=== PATIENT | male | born 1985 | race Caucasian/White ===

== ENCOUNTER 2021-09-29 13:49 | Outpatient (REF) | payer OTHER, SELFPAY ==
[2021-09-29 14:51] LABS: COVID-19 Test Negative (Negative)
== END 2021-09-29 13:50 | disposition home or self-care (01) ==
LOC: HO.LAB 13:49
PROVIDERS: Visit Provider Internal Medicine
DX: Z20.822 Contact with and (suspected) exposure to COVID-19 (principal)
CPT/HCPCS: 87635; C9803

== ENCOUNTER 2024-03-13 12:07 | Emergency (ER) | payer SELFPAY | END 2024-03-13 13:06 | disposition left against medical advice (07) | PROVIDERS: Emergency Provider Emergency Medicine | DX: K62.5 Hemorrhage of anus and rectum (principal); Z53.21 Procedure and treatment not carried out due to patient leaving prior to being seen by health care provider ==

== ENCOUNTER 2024-03-14 06:20 | Emergency (ER) | payer OTHER, SELFPAY ==
--- NOTE | ~2024-03-14 | CT_ITS ---
EXAMINATION: CT ABDOMEN AND PELVIS WITH CONTRAST CLINICAL INFORMATION: Rectal bleeding and now with epigastric pain COMPARISON: None available. TECHNIQUE: Multidetector volumetric images were obtained from the superior aspect of the liver through the pubic symphysis following administration 85 mL of Omnipaque 350 intravenous contrast. Sagittal and coronal reformatted images were obtained on the technologist's workstation. Oral contrast: No This CT examination was performed using dose optimization techniques as appropriate, variously including the following: *Automated exposure control *Adjustment of mA and/or kV according to patient size (this includes techniques or standardized protocols for targeted exams where dose is matched to indication/reason for exam; i.e. extremities or head) *Use of iterative reconstruction technique DLP: 808 mGy-cm FINDINGS: LUNG BASES: The visualized lung bases are unremarkable. LIVER, GALLBLADDER, AND BILIARY TREE: Mild hepatic steatosis. No focal hepatic mass. No intrahepatic biliary dilatation. The gallbladder is unremarkable with no evidence of radiopaque gallstones, gallbladder wall thickening, or obvious pericholecystic inflammatory changes. PANCREAS: Unremarkable. SPLEEN: Spleen grossly normal. Tiny punctate calcification along the margin of the spleen. No fluid collections. ADRENAL GLANDS: Unremarkable. KIDNEYS AND URETERS: The kidneys are normal in size, shape, and attenuation. No hydronephrosis, hydroureter, or calculi seen. No perinephric stranding. BLADDER: Unremarkable. GASTROINTESTINAL TRACT: The right colon is decompressed and shows variable areas of mural thickening. There are jejunal loops which appears somewhat indurated and thickened likely reflective of underlying enteritis and perhaps mild colitis. I do not see evidence of acute diverticulitis, bowel obstruction, or pericolonic fluid collection. The appendix is normal. ABDOMINAL WALL: No significant hernia is appreciated. LYMPH NODES: Small subcentimeter nodes are seen in the periportal and peripancreatic space. VASCULAR: Unremarkable. PELVIC VISCERA: Unremarkable. OSSEOUS STRUCTURES: Degenerative change observed at the lumbosacral junction. CT/CT abdomen pelvis w IV con IMPRESSION: Apparent enteritis. Possible mild colitis at the region of the hepatic flexure. Fleischner guidelines were followed.
[2024-03-14 06:26] VITALS: BP 145/81; PULSE 112; RESP 20; TEMP 36.8; O2SAT 95; BMI 34.2
--- NOTE | 2024-03-14 06:43 | MHC.EDTECH ---
Patient brought into triage area,labs drawn and sent to lab.
[2024-03-14 06:45] LABS: MANUAL DIFF FLAG NO
[2024-03-14 06:46] LABS: Basophils Percent Auto 0.5 % (0-2); Eosinophils Percent Auto 0.4 % (0-4); Hematocrit 46.1 % (42.0-52.0); Hemoglobin 16.5 g/dl (14.0-18.0); Imm Gran Abs Auto 0.01 X10*3/uL (0.00-0.03); Imm Gran Pct Auto 0.1 % (0.0-0.4); Lymphocytes Absolute Auto 1.3 X10*3/uL (1.2-4.9); Lymphocytes Percent Auto 17.8 % (20-40); Mean Corpuscular HGB Conc 35.8 g/dl (31.0-36.0); Mean Corpuscular Hemoglobin 33.3 pg (27.0-33.0); Mean Corpuscular Volume 93.1 fL (80.0-98.0); Mean Platelet Volume 9.7 fL (9.4-12.4); Monocytes Absolute Auto 0.8 X10*3/uL (0.1-1.2); Monocytes Percent Auto 10.1 % (2-11); Neutrophils Absolute Auto 5.4 x10*3/uL (2.0-8.3); Neutrophils Percent Auto 71.1 % (45-73); Platelet Count 194 X10*3/uL (160-400); Red Blood Count 4.95 X10*6/uL (4.60-5.80); Red Cell Distribution Width 12.8 % (11.0-16.0); White Blood Count 7.5 X10*3/uL (4.8-10.8)
--- NOTE | 2024-03-14 06:52 | ED_ITS ---
HPI - General Adult General Chief complaint: General Medical Stated complaint: gen med Time Seen by Provider: 03/14/24 06:51 Source: patient, RN notes reviewed and old records reviewed Mode of arrival: ambulatory History of Present Illness ED Provider: Griselda Rojo PA-C [facility] narrative: 38-year-old male with a past medical history of heroin abuse currently on methadone, ETOH abuse, presenting to the ED complaining of brbpr when wiping noted this morning. Admits to similar symptoms intermittently over the past year however has never seen a provider. Does report hemorrhoids. Also reports daily EtOH use, about 5 nips daily, last drink last night, feels withdrawal symptoms at present. Denies history of withdrawal seizures. Denies abdominal pain, nausea/vomiting, constipation/diarrhea, straining, taking anticoagulation, dysuria/hematuria Related Data Previous Rx's ?Medication ?Instructions ?Recorded hydrocortisone 1 % topical cream 1 appl IA DAILY #28.4 grams 03/14/24 with perineal applicator Allergies Allergy/AdvReac Type Severity Reaction Status Date / Time No Known Allergies Allergy Verified 03/14/24 06:32 Review of Systems 2 Review of Systems: Constitutional: No Fever, No Chills ENT/Mouth: No Ear Pain, No Nasal Congestion, No sore throat, No Rhinorrhea, No Swallowing Difficulty Cardiovascular: No Chest Pain, No SOB Respiratory: No Cough, No Sputum, No Wheezing Gastrointestinal: No Nausea, No Vomiting, No Diarrhea, No Constipation, No Abdominal pain, +brbpr Genitourinary: No Dysuria, No Urinary Frequency, No Hematuria, No Urinary Incontinence/retention, No Flank Pain Musculoskeletal: No joint pain, No Myalgias Skin: No Skin Lesions, No rash Neuro: No Weakness Yes all other systems are reviewed and are negative Constitutional: Constitutional: Reports as per [facility] Past Medical History Attestation statement: The following information was validated with the patient. Source: old records reviewed Social History Social History Alcohol intake: current Use of substances other than those prescribed or required for medical reasons: No Advance Directives: Yes Advance Directives Information Provided: Yes Advance Directives on File: No Physical Exam ED Vital Signs: Vital Signs - 24 hr 03/14/24 06:26 03/14/24 07:32 03/14/24 08:45 Temperature 98.3 F 98.6 F Pulse Rate 112 H 96 Pulse Rate [Bilateral Apical] 100 Respiratory Rate 20 20 Blood Pressure 145/81 H 149/79 H Pulse Oximetry 95 98 Oxygen Delivery Method Room Air Room Air 03/14/24 11:00 Temperature 98.4 F Pulse Rate 92 Pulse Rate [Bilateral Apical] Respiratory Rate 18 Blood Pressure 143/93 H Pulse Oximetry 96 Oxygen Delivery Method Room Air BMI result Body Mass Index 34.2 Const General: cooperative and no acute distress Orientation/consciousness: patient oriented x3 Limitations: no limitations HENMT Head: Yes normal to inspection and Yes atraumatic Ears: hearing grossly normal bilaterally General nose exam: Normal external nose present Face and sinus: Yes normal facial exam Eyes General: appearance normal, both eyes and all related structures EOM: EOMs intact bilaterally Neck Neck: Yes normal visual inspection and Yes no meningeal signs Resp Effort & Inspection: normal respiratory effort and no respiratory distress Auscultation: clear to auscultation bilaterally Cardio Rate: regular rate Heart sounds: S1 normal heart sound present and S2 normal heart sound present GI Inspection: Yes normal to inspection Palpation (GI): Soft to palpation, nontender, no guarding and not rigid Rectal Exam - Male: Yes External hemorrhoid(s) present, Yes Internal hemorrhoid(s) present (Prolapsed with swelling, no thrombosis or active bleeding) and No Anal fissure(s) present General: Yes no CVA tenderness Back/Spine/Pelvis Back: no CVA tenderness Skin Other: + diffuse bruises over entire body Rashes: no rashes Neuro Other: + mildly tremulous. No tongue fasciculation General: patient oriented x3, tone normal, moves all extremities and no meningeal signs Cranial nerves: Yes CN's II-XII intact bilaterally Motor exam (neuro): Motor fasciculations not present and Tremors during motor activity present Extrem General: Yes normal to inspection Course Course Course Narrative: -no leukocytosis. Labs otherwise reassuring. Mild elevation in AST/ALT. Lipase WNL. -occult stool negative -tox screen positive for methadone, cocaine and THC CT abdomen pelvis w IV con IMPRESSION: Apparent enteritis. Possible mild colitis at the region of the hepatic flexure. Fleischner guidelines were followed. > addiction medicine spoke with patient, he has not interested in inpatient detox. Was supplied with resources. Results discussed with patient. Suspect hemorrhoidal bleeding, recommended close GI/colorectal follow-up Results discussed with patient including worrisome signs and symptoms and strict return precautions, and when to return to the emergency department. They verbalized understanding and feel safe for discharge at this time. Medications Administered Discontinued Medications Generic Name Dose Route Start Last Admin Trade Name Gregorio PRN Reason Stop Dose Admin Sodium Chloride 1,000 mls @ 999 mls/hr 03/14/24 07:15 03/14/24 08:32 Ns IV 03/14/24 08:15 Infused .Q1H1M CLAUDIO Infusion Iohexol 100 ml 03/14/24 08:11 03/14/24 08:11 Iohexol 350 Mg/Ml 100 Ml Infus..Btl IV 03/14/24 08:12 85 ml ONCE ONE Administration Lorazepam 1 mg 03/14/24 07:03 03/14/24 07:07 Lorazepam 2 Mg/Ml Vial IVPUSH 03/14/24 07:04 1 mg STAT STA Administration Lorazepam 2 mg 03/14/24 08:43 03/14/24 08:46 Lorazepam 2 Mg/Ml Vial IVPUSH 03/14/24 08:44 2 mg ONCE ONE Administration Medical Decision Making Medical Decision Making MDM Narrative: 38-year-old male with a past medical history of heroin abuse currently on methadone, ETOH abuse, presenting to the ED complaining of brbpr when wiping noted this morning. Also reports daily EtOH use, about 5 nips daily, last drink last night, feels withdrawal symptoms at present. On exam mildly tremulous, tachycardic, NAD, abdomen soft, nontender, on rectal exam multiple hemorrhoids appreciated with prolapsed internal hemorrhoid, no thrombosis or active bleeding. Concern for hemorrhoidal bleeding, pancreatitis and ETOH withdrawal. R/o GI bleed. No evidence of fissure. Lower suspicion for appendicitis/diverticulitis, cholecystitis/lithiasis. Rule out metabolic/infectious etiologies. Low suspicion for severe sepsis at this time. Diffuse bruising discussed with patient, states he was roughhousing around with a friend. Will not let me fully examine ecchymosis/injuries Plan: EKG, labs, UA, tox screen, IVF, Ativan p.r.n. for ETOH withdrawal, occult stool, CT AP Please refer to course for remaining clinical decision making, interpretation of labs/imaging results, and discussions with consultants and/or family members. Differential Diagnosis Differential Diagnoses: The differential diagnosis associated with the presentation includes As above Admission/Observation Consideration of admission/observation: Escalation of care including admission/observation considered Consult Healthcare Provider Management of the patient was discussed with: Behavioral Health Provider Lab Data [facility] Lab Attestation statement: I reviewed the patient's lab results. 03/14/24 06:39 03/14/24 06:39 Labs: Lab Results 03/14/24 03/14/24 03/14/24 Range/Units 06:39 07:07 08:51 WBC 7.5 (4.8-10.8) X10*3/uL RBC 4.95 (4.60-5.80) X10*6/uL Hgb 16.5 (14.0-18.0) g/dl Hct 46.1 (42.0-52.0) % MCV 93.1 (80.0-98.0) fL MCH 33.3 H (27.0-33.0) pg MCHC 35.8 (31.0-36.0) g/dl RDW 12.8 (11.0-16.0) % Plt Count 194 (160-400) X10*3/uL MPV 9.7 (9.4-12.4) fL Immature Gran % (Auto) 0.1 (0.0-0.4) % Neut % (Auto) 71.1 (45-73) % Lymph % (Auto) 17.8 L (20-40) % [place] % (Auto) 10.1 (2-11) % Eos % (Auto) 0.4 (0-4) % Baso % (Auto) 0.5 (0-2) % Lymph # (Auto) 1.3 (1.2-4.9) X10*3/uL [place] # (Auto) 0.8 (0.1-1.2) X10*3/uL Eos # (Auto) 0.0 (0.0-0.4) X10*3/uL Baso # (Auto) 0.0 (0.0-0.2) X10*3/uL Abs Immat Gran (auto) 0.01 (0.00-0.03) X10*3/uL Absolute Neuts (auto) 5.4 (2.0-8.3) x10*3/uL Absolute Nucleated RBC 0.000 (0.0-0.012) X10*3/uL Nucleated RBC % (auto) 0.0 (0.0-0.2) /100WBC Sodium 140 (135-145) mmol/L Potassium 3.7 (3.3-5.1) mmol/L Chloride 104 (96-108) mmol/L Carbon Dioxide 25 (22-29) mmol/L Anion Gap 15 (12-20) BUN 6 L (9-16) mg/dL Creatinine 0.77 (0.5-1.4) mg/dL Estim Creat Clear Calc 163.3 Estimated GFR > 60 Random Glucose 124 H (60-115) mg/dL Calcium 9.8 (8.4-10.2) mg/dL Magnesium 1.6 (1.6-2.6) mg/dL Total Bilirubin 0.9 (0.0-1.0) mg/dL AST 51 H (5-37) U/L ALT 48 H (0-40) U/L Alkaline Phosphatase 116 (39-117) U/L Total Protein 7.6 (6.5-8.0) g/dL Albumin 4.6 (3.5-5.0) g/dL Lipase 20 (8-78) U/L Stool Occult Blood NEGATIVE (NEGATIVE) Urine Opiates Screen Not Detected (Not Detect) Ur Buprenorphine Scrn Not Detected (Not Detect) ng/mL Ur Oxycodone Screen Not Detected (Not Detect) ng/mL Urine Methadone Screen Positive H (Not Detect) ng/mL Urine Fentanyl Screen Not Detected (Not Detect) Ur Barbiturates Screen Not Detected (Not Detect) Ur Phencyclidine Scrn Not Detected (Not Detect) Ur Amphetamines Screen Not Detected (Not Detect) U Benzodiazepines Scrn Not Detected (Not Detect) Urine Cocaine Screen POSITIVE H (Not Detect) U Marijuana (THC) Screen POSITIVE H (Not Detect) Ethyl Alcohol < 10 mg/dL Independent Interpretation I performed an independent interpretation of an: EKG Radiology Impression Discussion of test interpretation with radiology: I have reviewed the radiologist's reading. External Record Review External record reviewed: Inpatient record, Office record, Outpatient record, Prior outpatient labs, Prior outpatient radiology, Primary care record and Outside ED record Tests considered The following testing was considered but not selected: As above Social Determinants Patient?s care significantly limited by Social Determinants of Health including: Low income and Alcoholism and drug addiction in family Discharge Plan Discharge Clinical Impression: Bleeding hemorrhoids, Enteritis, Alcohol abuse Patient Disposition: Home, Self-Care Instructions: Hemorrhoids (DC), Abuse of Alcohol (DC), Enteritis (ED) Additional Instructions: Your blood work is reassuring. We suspect her bleeding is from your hemorrhoids, you need to see a colorectal specialist Please practice Sitz baths and use topical hydrocortisone cream Your CT scan shows enteritis, practice a bland diet, make sure staying hydrated, no antibiotics are needed at this time If you develop constant worsening bleeding, abdominal pain, nausea/vomiting, you are unable to eat or drink or fever return to the emergency department You were given resources for detox, please consider detox, avoid alcohol use. Alcohol withdrawal can kill you Prescriptions: New hydrocortisone 1 % cream with perineal applicator 1 appl IA DAILY Qty: 28.4 0RF Referrals: [facility] [place] G[facility]enterology Services [Provider Group] [facility] [place] General Surgeons [Provider Group] Mirian Morillo CNP [Nurse Practitioner] - Interventions: ED Discharge Assessment Last Done: 03/14/24 11:00 Discharge Date/Time: 03/14/24 11:04 Print Language: Finnish
[2024-03-14 07:05] LABS: Alanine Aminotransferase 48 U/L (0-40); Albumin Level 4.6 g/dL (3.5-5.0); Alkaline Phosphatase 116 U/L (39-117); Anion Gap 15 (12-20); Aspartate Amino Transferase 51 U/L (5-37); Bilirubin Total 0.9 mg/dL (0.0-1.0); Blood Urea Nitrogen 6 mg/dL (9-16); Calcium 9.8 mg/dL (8.4-10.2); Carbon Dioxide 25 mmol/L (22-29); Chloride 104 mmol/L (96-108); Creatinine Clr Calc Pharmacy 163.3; Estimated Glomerular Filt Rate > 60; Ethanol < 10 mg/dL; Glucose Random 124 mg/dL (60-115); Magnesium 1.6 mg/dL (1.6-2.6); Potassium 3.7 mmol/L (3.3-5.1); Sodium 140 mmol/L (135-145); Total Protein 7.6 g/dL (6.5-8.0)
[2024-03-14] MEDS: LORazepam 2 MG/ML VIAL 1 MG IVPUSH (07:07)
[2024-03-14] MEDS: 0.9 % Sodium Chloride 1,000 ML 999 ML IV (07:07)
[2024-03-14 07:13] LABS: OBS Int Ctl Valid YES; OBS1 NEGATIVE (NEGATIVE)
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
[2024-03-14 07:32] VITALS: PULSE 100
--- NOTE | 2024-03-14 07:49 | ECG_ITS ---
Test Reason : TACHYCARDIA Blood Pressure : / mmHG Vent. Rate : 087 BPM Atrial Rate : 087 BPM P-R Int : 124 ms QRS Dur : 092 ms QT Int : 384 ms P-R-T Axes : 054 062 -16 degrees QTc Int : 462 ms Normal sinus rhythm with sinus arrhythmia Normal EKG No previous ECGs available Referred By: Griselda Rojo Electronically Signed By:ROLA RODRIGUEZ
[2024-03-14] MEDS: iohexoL 350 MG/ML 100 ML INFUS..BTL IV (08:11)
[2024-03-14 08:15] LABS: Lipase 20 U/L (8-78)
[2024-03-14 08:45] VITALS: BP 149/79; PULSE 96; RESP 20; TEMP 37; O2SAT 98
[2024-03-14] MEDS: LORazepam 2 MG/ML VIAL IVPUSH (08:46)
[2024-03-14 09:09] LABS: Amphetamine Screen Urine Not Detected (Not Detect); Barbiturates, Urine Not Detected (Not Detect); Benzodiazepines Screen Urine Not Detected (Not Detect); Buprenorphine Scr Not Detected (Not Detect); Cannabinoid Screen Urine POSITIVE (Not Detect); Cocaine Screen Urine POSITIVE (Not Detect); Fentanyl, urine Not Detected (Not Detect); Methadone Screen, Urine Positive (Not Detect); Opiate Screen Urine Not Detected (Not Detect); Oxycodone Screen Urine Not Detected (Not Detect); Phencyclidine Screen Urine Not Detected (Not Detect)
[2024-03-14 11:00] VITALS: BP 143/93; PULSE 92; RESP 18; TEMP 36.9; O2SAT 96
--- NOTE | 2024-03-14 11:31 | MHC.RECOVRN ---
Met with pt in ED13 after pt expressed interest in ATS and was medically cleared. Pt had presented to the ED reporting red blood after having BM. Pt reported hx of same but has never seen a provider. Pt denied ABD pain, N/V. Pt reported alcohol use. Pt sitting laying in bed, asleep, wakes to touch, mom at bedside and present for conversation with patient's permission. Pt appears comfortable, does not appear to be experiencing withdrawal. Pt reports alcohol use, approx 5 vodka shots daily x 1 year. Mom reports increase in alcohol use since dad in February. Pt reports he has never had a problem with alcohol in the past. Pt reports hx OUD, currently on methadone through [facility], 11 mg daily. Pt reports he is tapering off, had been at 80 mg. Has been going to [facility] x 5 years. Pt reports last opioid use approx 2.5 years ago. Pt denies hx ATS admissions. Pt reports he is interested in ATS, however, is not interested in inpatient tx. Educated pt regarding ATS and there is not a facility that offers outpatient detox. Educated pt on dangers of ceasing alcohol use abruptly, including risk of seizure. Pt verbalizes understanding. Educated pt on outpatient treatment options, including IOP, recovery collector, [facility], as well as AA and other groups. Provided pt with written resources as well as t/w contact information if needed. Pt would like to look over resources, does not want referrals at this time. Pt denies questions or concerns for t/w. Discussed with ED provider.
== END 2024-03-14 11:04 | disposition home or self-care (01) ==
PROVIDERS: Physician Assistant; Emergency Provider Emergency Medicine
DX: K64.9 Unspecified hemorrhoids (principal); F10.10 Alcohol abuse, uncomplicated; R00.0 Tachycardia, unspecified; R10.13 Epigastric pain; F11.20 Opioid dependence, uncomplicated; Z79.899 Other long term (current) drug therapy
CPT/HCPCS: 36415; 74177; 80053; 80307; 82272; 83690; 83735; 85025; 93005; 96361; 96374; 96376; 99285; J2060; Q9967

== ENCOUNTER → 2024-03-14 07:49 | Outpatient (BNV) | payer OTHER, SELFPAY | PROVIDERS: Emergency Provider Emergency Medicine; Visit Provider Internal Medicine | DX: R00.0 Tachycardia, unspecified (principal) | CPT/HCPCS: 93010 ==

== ENCOUNTER 2024-04-28 09:25 | Emergency (ER) | payer OTHER, SELFPAY ==
--- NOTE | ~2024-04-28 | XR_ITS ---
EXAMINATION: XR RIGHT WRIST XR LEFT FOOT CLINICAL INFORMATION: Right wrist pain. Left foot pain. COMPARISON: None available. TECHNIQUE: AP, lateral and oblique views of the left foot. PA, lateral, oblique and navicular views of the right wrist. FINDINGS: Right wrist: Alignment is anatomic. Joint spaces are maintained. No displaced fracture or dislocation. No bony erosions. No focal radiographic soft tissue swelling. Left foot: Alignment is anatomic. Joint spaces are maintained. No displaced fracture or dislocation. No focal radiographic soft tissue swelling. XR/XR foot LT min 3V IMPRESSION: No acute abnormality.
--- NOTE | ~2024-04-28 | XR_ITS ---
EXAMINATION: XR RIGHT WRIST XR LEFT FOOT CLINICAL INFORMATION: Right wrist pain. Left foot pain. COMPARISON: None available. TECHNIQUE: AP, lateral and oblique views of the left foot. PA, lateral, oblique and navicular views of the right wrist. FINDINGS: Right wrist: Alignment is anatomic. Joint spaces are maintained. No displaced fracture or dislocation. No bony erosions. No focal radiographic soft tissue swelling. Left foot: Alignment is anatomic. Joint spaces are maintained. No displaced fracture or dislocation. No focal radiographic soft tissue swelling. XR/XR wrist RT min 3V IMPRESSION: No acute abnormality.
[2024-04-28 09:27] VITALS: BP 111/85; PULSE 104; RESP 18; TEMP 37.5; O2SAT 96; BMI 34.4
--- NOTE | 2024-04-28 09:36 | ED_ITS ---
HPI - Extremity Problem General Chief complaint: Extremity Injury, Upper Stated complaint: swollen wrist Time Seen by Provider: 04/28/24 09:35 Source: patient and RN notes reviewed Mode of arrival: ambulatory Limitations: no limitations History of Present Illness ED Provider: Sherry Ribera PA-C [facility] Narrative: This is a 38-year-old male, with a history of opioid use disorder on methadone, who presents emergency department with complaints of right wrist pain and swelling and left foot pain for the last 2 weeks. He denies any recent trauma or injury. Did have a skin graft in his right wrist in 2001. He denies any repetitious movements however states that he does frequently lift at work. Denies history of similar symptoms in the past. No history of gout. He has been taking Excedrin for his pain which has provided him with minimal relief. No fevers or chills. No chest pain or shortness for breath. No other complaints or concerns at this time. MD Complaint: extremity pain, extremity swelling, joint swelling and joint pain Onset (ago): week(s) Pain Consistency: constant Location: right and upper extremity Quality: aching Radiation: none Relieving factors: nothing Exacerbating factors: nothing Associated symptoms: denies other symptoms Related Data Previous Rx's ?Medication ?Instructions ?Recorded hydrocortisone 1 % topical cream 1 appl [place] DAILY #28.4 grams 03/14/24 with perineal applicator acetaminophen 325 mg tablet 650 mg (2 x 325 mg) PO Q6H PRN 04/28/24 (Tylenol) pain #30 tabs ibuprofen 600 mg tablet 600 mg PO Q6H PRN pain #30 tabs 04/28/24 prednisone 20 mg tablet 40 mg (2 x 20 mg) PO DAILY 4 days 04/28/24 #8 tabs Allergies Allergy/AdvReac Type Severity Reaction Status Date / Time No Known Allergies Allergy Verified 04/28/24 09:29 Review of Systems 2 Review of Systems: Yes all other systems are reviewed and are negative Constitutional: Constitutional: Reports as per [facility] Past Medical History Attestation statement: The following information was validated with the patient. Social History Social History Alcohol intake: current Advance Directives: No Advance Directives Information Provided: No Physical Exam 2 Vital Signs: Vital Signs: Last Vital Signs Temp 97.7 F 04/28/24 12:51 Pulse 72 04/28/24 12:51 Resp 16 04/28/24 12:51 BP 135/91 H 04/28/24 12:51 Pulse Ox 97 04/28/24 12:51 O2 Del Method Room Air 04/28/24 12:51 BMI result Body Mass Index 34.4 Const: General: cooperative, comfortable and no acute distress O rientation/consciousness: patient oriented x3 Limitations: no limitations HEENT: Head: Yes normal to inspection, Yes normocephalic and Yes atraumatic Ears: hearing grossly normal bilaterally General nose exam: Normal external nose present Face and sinus: Yes normal facial exam Mouth: Normal oral and palatal mucosa present, oropharynx normal and moist mucous membranes Throat: Yes posterior oropharynx normal Eyes: General: appearance normal, both eyes and all related structures E yelids: Yes eyelids normal Conjunctivae: conjunctivae normal Sclerae: s clerae normal Pupils: Equal, round and reactive pupils present EOM: EOMs intact bilaterally Neck: Neck: Yes normal visual inspection, Yes full ROM and Yes no lymphadenopathy Lymphatic: no lymphadenopathy noted Chest: Chest palpation & inspection: normal inspection of the chest Resp: Effort & Inspection: normal respiratory effort and able to speak in complete sentences Auscultation: clear to auscultation bilaterally, no crackles, no rales, no rhonchi and no wheezes Cardio: Rate: regular rate Rhythm: regular rhythm Heart sounds: S1 normal heart sound present and S2 normal heart sound present GI: Inspection: Yes normal to inspection Skin: General skin exam: no rashes or lesions noted Trauma: no lacerations or abrasions Wounds: no wounds Neuro: General: patient oriented x3 and moves all extremities Cranial nerves: Yes Equal, round and reactive pupils present Extrem: Other: Left foot, with no obvious bony deformity or swelling no erythema or warmth. Full range of motion of the ankle joint. No medial or lateral malleoli tenderness. DP pulse 2 +. Mild tenderness palpation along the dorsum of the tarsals. Right wrist, with old skin grafting noted, no gross bony deformity or swelling. Joint is warm. No profound erythema. Limited mobility of the wrist joint, able to flex and extend, trouble with ulnar and radial deviation. Strong radial pulse. General: Yes normal to inspection Right upper extremity: normal to inspection Left upper extremity: normal to inspection Right lower extremity: normal to inspection Left lower extremity: normal to inspection Course Reevaluation(s) Reevaluation #1: Uric acid returns, is elevated at 7.6, inflammatory markers also elevated. Symptoms consistent with gout flare-up. Will treat with prednisone, and anti- inflammatories. Discussed strict return precautions. He understands agrees with plan. Patient stable for discharge. Medications Administered Discontinued Medications Generic Name Dose Route Start Last Admin Trade Name Gregorio PRN Reason Stop Dose Admin Ibuprofen 600 mg 04/28/24 09:51 04/28/24 09:59 Ibuprofen 600 Mg Tablet PO 04/28/24 09:52 600 mg ONCE ONE Administration Prednisone 50 mg 04/28/24 12:16 04/28/24 12:28 Prednisone 10 Mg Tablet PO 04/28/24 12:17 50 mg ONCE ONE Administration Medical Decision Making Medical Decision Making [facility] Narrative: This is a 38-year-old male who presents emergency department with complaints of right wrist pain and left foot pain x2 weeks. On arrival, heart rate 104, he is afebrile, alert and oriented x4. Right wrist with moderate edema, with limited range of motion of the wrist. Differential diagnoses include gouty arthritis, sprain, strain, tendinitis, septic arthritis-unlikely. Plan: Labs, x-ray, ibuprofen 600 mg Differential Diagnosis Differential Diagnoses: The differential diagnosis associated with the presentation includes See above Admission/Observation Consideration of admission/observation: Escalation of care including admission/observation considered Lab Data [facility] Lab Attestation statement: I reviewed the patient's lab results. 04/28/24 10:05 04/28/24 10:05 Labs: Lab Results 04/28/24 Range/Units 10:05 WBC 11.0 H (4.8-10.8) X10*3/uL RBC 4.74 (4.60-5.80) X10*6/uL Hgb 15.5 (14.0-18.0) g/dl Hct 45.7 (42.0-52.0) % MCV 96.4 (80.0-98.0) fL MCH 32.7 (27.0-33.0) pg MCHC 33.9 (31.0-36.0) g/dl RDW 12.7 (11.0-16.0) % Plt Count 265 D (160-400) X10*3/uL MPV 9.8 (9.4-12.4) fL Immature Gran % (Auto) 0.5 H (0.0-0.4) % Neut % (Auto) 73.8 H (45-73) % Lymph % (Auto) 15.4 L (20-40) % Lane % (Auto) 7.5 (2-11) % Eos % (Auto) 2.3 (0-4) % Baso % (Auto) 0.5 (0-2) % Lymph # (Auto) 1.7 (1.2-4.9) X10*3/uL Lane # (Auto) 0.8 (0.1-1.2) X10*3/uL Eos # (Auto) 0.3 (0.0-0.4) X10*3/uL Baso # (Auto) 0.1 (0.0-0.2) X10*3/uL Abs Immat Gran (auto) 0.05 H (0.00-0.03) X10*3/uL Absolute Neuts (auto) 8.1 (2.0-8.3) x10*3/uL Absolute Nucleated RBC 0.000 (0.0-0.012) X10*3/uL Nucleated RBC % (auto) 0.0 (0.0-0.2) /100WBC ESR 6 (0-15) MM/HR Sodium 139 (135-145) mmol/L Potassium 4.1 (3.3-5.1) mmol/L Chloride 108 (96-108) mmol/L Carbon Dioxide 21 L (22-29) mmol/L Anion Gap 14 (12-20) BUN 12 (9-16) mg/dL Creatinine 0.73 (0.5-1.4) mg/dL Estim Creat Clear Calc 172.8 Estimated GFR > 60 Random Glucose 103 (60-115) mg/dL Uric Acid 7.6 H (3.4-7.0) mg/dL Calcium 9.1 D (8.4-10.2) mg/dL Total Bilirubin 0.3 (0.0-1.0) mg/dL Direct Bilirubin 0.1 (0.0-0.5) mg/dL AST 33 (5-37) U/L ALT 43 H (0-40) U/L Alkaline Phosphatase 117 (39-117) U/L C-Reactive Protein 1.24 H (< or = 0.50) mg/dL Total Protein 7.1 (6.5-8.0) g/dL Albumin 4.2 (3.5-5.0) g/dL Radiology Impression Discussion of test interpretation with radiology: I have reviewed the radiologist's reading. External Record Review External record reviewed: Inpatient record, Office record, Outpatient record, Prior outpatient labs, Prior outpatient radiology, Primary care record and Outside ED record Discharge Plan Discharge Clinical Impression: Gout Patient Disposition: Home, Self-Care Instructions: Low Purine Diet (ED), Gout (ED) Additional Instructions: You were seen in the emergency department due to hand and wrist pain and left foot pain. Your x-rays were normal. You have a condition called gout, see attached details in regards to this condition. You may alter your dietary habits to prevent this from happening in the future. Drink plenty of fluids get plenty of rest. Take ibuprofen and Tylenol as needed for pain. Take prednisone, start this tomorrow as you already received your 1st dose today. If any new or worsening symptoms occur including but not limited to fevers, chills, worsening pain, please return for re-evaluation. Prescriptions: New prednisone 20 mg tablet 40 mg PO DAILY 4 Days Qty: 8 0RF ibuprofen 600 mg tablet 600 mg PO Q6H PRN (Reason: pain) Qty: 30 0RF acetaminophen [Tylenol] 325 mg tablet 650 mg PO Q6H PRN (Reason: pain) Qty: 30 0RF No Action hydrocortisone 1 % cream with perineal applicator 1 appl WA DAILY Qty: 28.4 0RF Referrals: [facility] [Physician] - Stand Alone Forms: Work/School Release Interventions: ED Discharge Assessment Last Done: 04/28/24 12:51 Discharge Date/Time: 04/28/24 12:52 Print Language: Urdu
[2024-04-28] MEDS: Ibuprofen 600 MG TABLET PO (09:59)
[2024-04-28 10:10] LABS: MANUAL DIFF FLAG NO
[2024-04-28 10:14] LABS: Basophils Absolute Auto 0.1 X10*3/uL (0.0-0.2); Basophils Percent Auto 0.5 % (0-2); Eosinophils Absolute Auto 0.3 X10*3/uL (0.0-0.4); Eosinophils Percent Auto 2.3 % (0-4); Hematocrit 45.7 % (42.0-52.0); Hemoglobin 15.5 g/dl (14.0-18.0); Imm Gran Abs Auto 0.05 X10*3/uL (0.00-0.03); Imm Gran Pct Auto 0.5 % (0.0-0.4); Lymphocytes Absolute Auto 1.7 X10*3/uL (1.2-4.9); Lymphocytes Percent Auto 15.4 % (20-40); Mean Corpuscular HGB Conc 33.9 g/dl (31.0-36.0); Mean Corpuscular Hemoglobin 32.7 pg (27.0-33.0); Mean Corpuscular Volume 96.4 fL (80.0-98.0); Mean Platelet Volume 9.8 fL (9.4-12.4); Monocytes Absolute Auto 0.8 X10*3/uL (0.1-1.2); Monocytes Percent Auto 7.5 % (2-11); Neutrophils Absolute Auto 8.1 x10*3/uL (2.0-8.3); Neutrophils Percent Auto 73.8 % (45-73); Platelet Count 265 X10*3/uL (160-400); Red Blood Count 4.74 X10*6/uL (4.60-5.80); Red Cell Distribution Width 12.7 % (11.0-16.0)
[2024-04-28 10:30] LABS: Uric Acid 7.6 mg/dL (3.4-7.0)
[2024-04-28 10:31] LABS: Alanine Aminotransferase 43 U/L (0-40); Albumin Level 4.2 g/dL (3.5-5.0); Alkaline Phosphatase 117 U/L (39-117); Anion Gap 14 (12-20); Aspartate Amino Transferase 33 U/L (5-37); Bilirubin Direct 0.1 mg/dL (0.0-0.5); Bilirubin Total 0.3 mg/dL (0.0-1.0); Blood Urea Nitrogen 12 mg/dL (9-16); C Reactive Protein 1.24 mg/dL (< or = 0.50); Calcium 9.1 mg/dL (8.4-10.2); Carbon Dioxide 21 mmol/L (22-29); Chloride 108 mmol/L (96-108); Creatinine Clr Calc Pharmacy 172.8; Estimated Glomerular Filt Rate > 60; Glucose Random 103 mg/dL (60-115); Potassium 4.1 mmol/L (3.3-5.1); Sodium 139 mmol/L (135-145); Total Protein 7.1 g/dL (6.5-8.0)
[2024-04-28 10:55] LABS: Erythrocyte Sedimentation Rate 6 MM/HR (0-15)
[2024-04-28] MEDS: predniSONE 10 MG TABLET 50 MG PO (12:28)
[2024-04-28 12:50] VITALS: BP 135/91; PULSE 72; RESP 16; TEMP 36.5; O2SAT 97
[2024-04-28 12:51] VITALS: BP 135/91; PULSE 72; RESP 16; TEMP 36.5; O2SAT 97
== END 2024-04-28 12:52 | disposition home or self-care (01) ==
PROVIDERS: Physician Assistant Medical; Emergency Provider Emergency Medicine
DX: M10.9 Gout, unspecified (principal); M25.531 Pain in right wrist; M79.672 Pain in left foot
CPT/HCPCS: 36415; 73110; 73630; 80048; 80076; 84550; 85025; 85652; 86140; 99283; 99284

== ENCOUNTER → 2024-07-12 13:38 | Outpatient (BNVA) | payer OTHER, SELFPAY | PROVIDERS: Visit Provider Physician Assistant Medical | DX: S91.331A Puncture wound without foreign body, right foot, initial encounter (principal); W22.09XA Striking against other stationary object, initial encounter | CPT/HCPCS: 99202 ==

== ENCOUNTER → 2024-07-14 15:39 | Outpatient (BNVA) | payer OTHER, SELFPAY | PROVIDERS: Visit Provider Physician Assistant Medical | DX: S91.331A Puncture wound without foreign body, right foot, initial encounter (principal); W22.09XA Striking against other stationary object, initial encounter | CPT/HCPCS: 99213 ==

== ENCOUNTER 2024-09-26 19:08 | Emergency (ER) | payer MEDICAID, SELFPAY ==
--- NOTE | ~2024-09-26 | XR_ITS ---
CLINICAL HISTORY: Coughing. pneumonia? Chest Radiograph Comparison: CT - CT ABDOMEN PELVIS W IV CON - 03/14/24 07:54 EDT Findings: No cardiomegaly. Normal mediastinal contours. No pneumothorax. Linear opacity in the left lower lung zone. No pleural effusion. Normal upper abdomen. No acute fracture. Impression: Linear opacity in the left lower lung zone could be atelectasis or scarring. Developing pneumonia is considered less likely. This document has been electronically signed by: Stacy Hdz MD on 09/26/2024 19:40:55
[2024-09-26 19:13] VITALS: BP 136/88; PULSE 103; RESP 18; TEMP 37.1; O2SAT 95; BMI 34.4
--- NOTE | 2024-09-26 19:17 | ED_ITS ---
HPI - General Adult General Chief complaint: Upper Respiratory Symptoms Stated complaint: sore throat/chest congestion Time Seen by Provider: 09/26/24 22:38 Source: patient Mode of arrival: ambulatory Limitations: no limitations History of Present Illness ED Provider: Zoraida Villalba NP HPI narrative: Patient is a 38-year-old male who presents emergency department for evaluation he reports having upper respiratory symptoms over the past 3 weeks, symptoms since yesterday became increasingly worse with cough, pain diffusely to the anterior chest during episodes of coughing and shortness of breath. Denies fevers, chills, headache, dizziness, neck pain, neck stiffness, nausea, vomiting, abdominal pain, numbness or tingling of the extremities, genitourinary symptoms. Related Data Previous Rx's ?Medication ?Instructions ?Recorded hydrocortisone 1 % topical cream 1 appl MS DAILY #28.4 grams 03/14/24 with perineal applicator acetaminophen 325 mg tablet 650 mg (2 x 325 mg) PO Q6H PRN 04/28/24 (Tylenol) pain #30 tabs ibuprofen 600 mg tablet 600 mg PO Q6H PRN pain #30 tabs 04/28/24 prednisone 20 mg tablet 40 mg (2 x 20 mg) PO DAILY 4 days 04/28/24 #8 tabs cephalexin 250 mg capsule 250 mg PO QID 5 days #20 caps 07/12/24 amoxicillin 500 mg capsule 1,000 mg (2 x 500 mg) PO TID 5 09/26/24 days #30 caps oseltamivir 75 mg capsule (Tamiflu) 75 mg PO BID 5 days #10 caps 09/26/24 Allergies Allergy/AdvReac Type Severity Reaction Status Date / Time No Known Allergies Allergy Verified 09/26/24 19:14 Review of Systems Review of Systems: Yes all other systems are reviewed and are negative [facility] Past Medical History Attestation statement: The following information was validated with the patient. Source: old records reviewed Social History Social History Alcohol intake: current Smoked in Last 30 Days: No Advance Directives: No Advance Directives Information Provided: No Do you have a plan to hurt others: No Plan Physical Exam ED Vital Signs: Vital Signs - 24 hr 09/26/24 19:13 09/26/24 22:40 09/26/24 23:02 Temperature 98.8 F 99.3 F 99.3 F Pulse Rate 103 H 101 H 101 H Respiratory Rate 18 18 18 Blood Pressure 136/88 132/90 H 132/90 H Pulse Oximetry 95 96 96 Oxygen Delivery Method Room Air Room Air Room Air BMI result Body Mass Index 34.4 Appearance: Alert.?Oriented to person, place and time. No acute distress.?Normal affect. Eyes: Pupils equal, round and reactive to light.? ENT: TM normal bilaterally. Pharynx normal.?? Neck: Normal inspection.? Neck supple.??No cervical adenopathy CVS: Heart sounds normal. Normal heart rate and rhythm.? Pulses normal.?? Respiratory: No respiratory distress.? Lung sounds clear to auscultation bilaterally?? Abdomen: Soft and non-tender. Normoactive bowel sounds. Skin: Skin warm and dry.? Normal skin color.? ? Extremities: No lower extremity edema.? Neuro: Moves all extremities spontaneously. Sensation intact bilaterally. No motor deficits. Ambulates with normal steady gait. Course Course Course Narrative: RME: 38 yold male presents to the ED for sore throat and coughing for weeks. SARS, strep, and chest xray ordered Medical Decision Making Medical Decision Making MDM Narrative: Patient is a 38-year-old male, presenting for evaluation of upper respiratory symptoms. Acute progression for the past 24 hours in the setting of URI symptoms over the past 3 weeks. COVID-19/RSV negative. Influenza A positive. CXR revealing opacity of the left lower lobe given duration of illness I have concern for pneumonia, with worsening of symptoms secondary to influenza. At this time history and physical exam not consistent with ACS/PE. Well-appearing, nontoxic, afebrile, minimal tachycardia, no tachypnea/hypoxia. Speaking clear full sentences, ambulatory with steady gait. Prescription for antibiotic and Tamiflu were sent to pharmacy. Discussed conservative treatment including rest, hydration, Tylenol/ibuprofen as needed for fever and body aches, saline nasal spray, humidifier, [id number] cold medication. Advised to follow-up with primary care provider as needed, discussed reasons to return back to the emergency department. All questions were answered. Patient discharged home in stable condition. Provided with a return to work/school note. Differential Diagnosis Differential Diagnoses: The differential diagnosis associated with the presentation includes ( See narrative above) Admission/Observation Consideration of admission/observation: Escalation of care including admission/observation considered ( see narrative above) Lab Data MDM Lab Attestation statement: I reviewed the patient's lab results. ( see narrative above) Labs: Lab Results 09/26/24 Range/Units 19:40 Influenza Type A (PCR) POSITIVE A (Negative) Influenza Type B (PCR) NEGATIVE (Negative) RSV RNA Qual (PCR) NEGATIVE (Negative) SARS-CoV-2 RNA (RT-PCR) NEGATIVE (Negative) S. pyogenes GrpA SULEMA Negative (Negative) Independent Interpretation I performed an independent interpretation of an: Plain X-Ray (Left lower lobe opacity) Radiology Impression Discussion of test interpretation with radiology: I have reviewed the radiologist's reading. Radiologist Impression: Chest Radiograph Comparison: CT - CT ABDOMEN PELVIS W IV CON - 03/14/24 07:54 EDT Findings: No cardiomegaly. Normal mediastinal contours. No pneumothorax. Linear opacity in the left lower lung zone. No pleural effusion. Normal upper abdomen. No acute fracture. Impression: Linear opacity in the left lower lung zone could be atelectasis or scarring. Developing pneumonia is considered less likely. Prescription Management I considered prescription management with: Pain Medication ( acetaminophen/ibuprofen) Discharge Plan Discharge Clinical Impression: Influenza, Pneumonia Patient Disposition: Home, Self-Care Instructions: Influenza (ED), Community Acquired Pneumonia (DC) Prescriptions: New amoxicillin 500 mg capsule 1,000 mg PO TID 5 Days Qty: 30 0RF oseltamivir [Tamiflu] 75 mg capsule 75 mg PO BID 5 Days Qty: 10 0RF No Action hydrocortisone 1 % cream with perineal applicator 1 appl MS DAILY Qty: 28.4 0RF prednisone 20 mg tablet 40 mg PO DAILY 4 Days Qty: 8 0RF ibuprofen 600 mg tablet 600 mg PO Q6H PRN (Reason: pain) Qty: 30 0RF acetaminophen [Tylenol] 325 mg tablet 650 mg PO Q6H PRN (Reason: pain) Qty: 30 0RF cephalexin 250 mg capsule 250 mg PO QID 5 Days Qty: 20 0RF Referrals: Physician,None [Primary Care Provider] - Stand Alone Forms: Work/School Release Interventions: ED Discharge Assessment Last Done: 09/26/24 23:02 Discharge Date/Time: 09/26/24 23:03 Print Language: Luxembourgish
[2024-09-26 20:03] LABS: IDNOW Serial# 6674DD1D; Strep A Nucleic Acid Negative (Negative)
[2024-09-26 20:31] LABS: Influenza A PCR POSITIVE (Negative); Influenza B PCR NEGATIVE (Negative); Resp Syncy Virus RNA Qual PCR NEGATIVE (Negative); SARS COV2 PCR INHOUSE NEGATIVE (Negative)
[2024-09-26 22:40] VITALS: BP 132/90; PULSE 101; RESP 18; TEMP 37.4; O2SAT 96
--- NOTE | 2024-09-26 22:44 | PC.NURSE ---
PA to triage for eval, plan for dc home with scripts.
[2024-09-26 23:02] VITALS: BP 132/90; PULSE 101; RESP 18; TEMP 37.4; O2SAT 96
== END 2024-09-26 23:03 | disposition home or self-care (01) ==
PROVIDERS: Physician Assistant; Emergency Provider Emergency Medicine Emergency Medical Services
DX: J10.00 Influenza due to other identified influenza virus with unspecified type of pneumonia (principal); R05.9 Cough, unspecified; Z03.818 Encounter for observation for suspected exposure to other biological agents ruled out
CPT/HCPCS: 0241U; 71045; 87651; 99283

== ENCOUNTER → 2024-09-26 19:15 | Outpatient (BNV) | payer MEDICAID, SELFPAY | PROVIDERS: Visit Provider Radiology Diagnostic Radiology | DX: R91.8 Other nonspecific abnormal finding of lung field (principal) | CPT/HCPCS: 71045 ==

== ENCOUNTER 2024-10-19 16:36 | Emergency (ER) | payer OTHER, SELFPAY ==
[2024-10-19 16:53] VITALS: BP 142/91; PULSE 100; RESP 20; TEMP 36.3; O2SAT 93; BMI 31.6
--- NOTE | 2024-10-19 16:54 | ED.GENADULT ---
HPI - General Adult General Chief complaint: General Medical Stated complaint: sore throat Time Seen by Provider: 10/19/24 19:36 Source: patient Limitations: no limitations History of Present Illness ED Provider: Alicia Koehler PA-C HPI narrative: 38-year-old male who presents with sore throat times 2-3 days. Denies fever. Patient states he recently tested positive for the flu mid September. Denies cough, shortness of breath, chest pain. No active GI symptoms. Related Data Previous Rx's ?Medication ?Instructions ?Recorded hydrocortisone 1 % topical cream 1 appl MT DAILY #28.4 grams 03/14/24 with perineal applicator acetaminophen 325 mg tablet 650 mg (2 x 325 mg) PO Q6H PRN 04/28/24 (Tylenol) pain #30 tabs ibuprofen 600 mg tablet 600 mg PO Q6H PRN pain #30 tabs 04/28/24 prednisone 20 mg tablet 40 mg (2 x 20 mg) PO DAILY 4 days 04/28/24 #8 tabs cephalexin 250 mg capsule 250 mg PO QID 5 days #20 caps 07/12/24 amoxicillin 500 mg capsule 1,000 mg (2 x 500 mg) PO TID 5 09/26/24 days #30 caps oseltamivir 75 mg capsule (Tamiflu) 75 mg PO BID 5 days #10 caps 09/26/24 Allergies Allergy/AdvReac Type Severity Reaction Status Date / Time No Known Allergies Allergy Verified 10/19/24 16:54 Review of Systems Review of Systems: Yes all other systems are reviewed and are negative Constitutional: Constitutional: Denies fatigue and Denies fever(s) ENT: Reports sore throat Cardiovascular: Cardiovascular: Denies chest pain and Denies dyspnea Respiratory: Respiratory: Denies chest congestion, Denies cough and Denies dyspnea Gastrointestinal: Gastrointestinal: Denies diarrhea, Denies nausea and Denies vomiting Endocrine: Endocrine: Denies fatigue PMF Past Medical History Attestation statement: The following information was validated with the patient. Social History Social History Alcohol intake: current Advance Directives: No Advance Directives Information Provided: No Do you have a plan to hurt others: No Plan Physical Exam ED Vital Signs: Vital Signs - 24 hr 10/19/24 16:53 Temperature 97.3 F Pulse Rate 100 Respiratory Rate 20 Blood Pressure 142/91 H Pulse Oximetry 93 Oxygen Delivery Method Room Air BMI result Body Mass Index 31.6 Const Other: Alert Orientation/consciousness: patient oriented x3 HENMT Other: Oropharynx is erythematous without exudate, uvula midline, no sublingual fluctuance, no swelling inferior to the jawline Neck Other: Minimal anterior cervical lymphadenopathy Resp Effort & Inspection: normal respiratory effort Cardio Other: Normal peripheral perfusion Skin Other: Warm dry no rash Neuro General: patient oriented x3, no focal motor deficits and CN's II-XI intact bilaterally Psych Other: Calm cooperative Course Course Course Narrative: This is a rapid medical exam performed by Alicia Koehler PA-C. Patient is a 38-year-old male who presents with sore throat times 2-3 days. Denies fever. On exam, his oropharynx is erythematous, tonsils are prominent, I can not see obvious exudate. We will be obtaining viral panel and strep culture. Patient was stable can return to the waiting room pending his full medical assessment Medical Decision Making Medical Decision Making MDM Narrative: 38-year-old male who presents with sore throat times 2-3 days. Denies fever. Patient states he recently tested positive for the flu mid September. Denies cough, shortness of breath, chest pain. No active GI symptoms. No chronic issues History: Per patient I have considered the following differential diagnoses: Strep pharyngitis, viral syndrome, RPA, WALLPAPERER Plan: Viral panel and strep screen obtained from triage, everything is negative. He has no exam findings consistent with either RPA or WALLPAPERER. We will send with home care instructions. I have independently reviewed the following tests: Labs: Viral panel negative, strep screen negative Lab Data Labs: Lab Results 10/19/24 Range/Units 17:06 Influenza Type A (PCR) NEGATIVE (Negative) Influenza Type B (PCR) NEGATIVE (Negative) RSV RNA Qual (PCR) NEGATIVE (Negative) SARS-CoV-2 RNA (RT-PCR) NEGATIVE (Negative) S. pyogenes GrpA SULEMA Negative (Negative) Discharge Plan Discharge Clinical Impression: Acute viral pharyngitis Patient Disposition: Home, Self-Care Instructions: Pharyngitis (ED) Additional Instructions: You were screened for influenza a and B, RSV and COVID, the viral panel is negative. We screened you for strep throat. That is negative as well. You have yet another virus causing your symptoms. See home care instructions. Follow up with your primary care provider as needed. Prescriptions: No Action hydrocortisone 1 % cream with perineal applicator 1 appl MT DAILY Qty: 28.4 0RF prednisone 20 mg tablet 40 mg PO DAILY 4 Days Qty: 8 0RF ibuprofen 600 mg tablet 600 mg PO Q6H PRN (Reason: pain) Qty: 30 0RF acetaminophen [Tylenol] 325 mg tablet 650 mg PO Q6H PRN (Reason: pain) Qty: 30 0RF amoxicillin 500 mg capsule 1,000 mg PO TID 5 Days Qty: 30 0RF oseltamivir [Tamiflu] 75 mg capsule 75 mg PO BID 5 Days Qty: 10 0RF cephalexin 250 mg capsule 250 mg PO QID 5 Days Qty: 20 0RF Stand Alone Forms: Work/School Release Print Language: Divehi
[2024-10-19 17:20] LABS: IDNOW Serial# 08D9AD1C; Strep A Nucleic Acid Negative (Negative)
[2024-10-19 17:49] LABS: Influenza A PCR NEGATIVE (Negative); Influenza B PCR NEGATIVE (Negative); Resp Syncy Virus RNA Qual PCR NEGATIVE (Negative); SARS COV2 PCR INHOUSE NEGATIVE (Negative)
[2024-10-19 19:41] VITALS: BP 139/86; PULSE 76; RESP 18; TEMP 36.8; O2SAT 98
[2024-10-19 19:42] VITALS: BP 139/86; PULSE 76; RESP 18; TEMP 36.8; O2SAT 98
== END 2024-10-19 19:44 | disposition home or self-care (01) ==
PROVIDERS: Physician Assistant Medical; Emergency Provider Emergency Medicine
DX: J02.8 Acute pharyngitis due to other specified organisms (principal); Z03.818 Encounter for observation for suspected exposure to other biological agents ruled out
CPT/HCPCS: 0241U; 87651; 99282; 99283

== ENCOUNTER 2024-11-09 20:37 | Emergency (ER) | payer OTHER, SELFPAY ==
--- NOTE | ~2024-11-09 | XR_ITS ---
CLINICAL HISTORY: twisted ankle 3 views right ankle Comparison: CR - ANKLE RIGHT COMPLETE [id number] - 03/11/17 07:06 EDT Findings: There is lateral soft tissue swelling. There is no fracture or dislocation. Joint spaces appear normal. Impression: No osseous abnormality. This document has been electronically signed by: Frandy Pascual MD on 11/09/2024 22:07:01
--- NOTE | 2024-11-09 20:42 | PC.NURSE ---
pt not answering to call in waiting room.
[2024-11-09 20:57] VITALS: BP 129/86; PULSE 118; RESP 16; TEMP 36.6; O2SAT 95; BMI 37.0
--- OUTSIDE RECORDS SUMMARY | 2024-11-09 23:25 | XMS_ITS | Clinical Summary ---
Author Organization [facility] Address [address] [place] [phone] Phone Care Team Providers Care Theatrical Rigger Name Role Phone Ayaz Bustos MD Primary Care Provider Unavailabl e Immunizations Immunization Administration Dates Next Due DTP 11/14/1992, 9,05/21/1988,03/18,01/16/1988 Hep B, ped/adol 04/25/2001,01/22/2000,12/11/1999 Hib (HbOC) 07/13/1989 MMR 12/11/1999,03/11/1989 Meningococcal Conj (Menactra) MCV4P 01/14/2006 OPV 11/14/1992, 9,03/18/1988,01/15 Pneumococcal Polysaccharide 01/14/2006 Td (adult) (MBL), 2 Lf tetan us toxoid, PF, adsorbed 01/22/2000 Family History Relation Name Status Comments Father Alive Father: Alive a nd well Mother Alive Mother: Alive a nd well Sister Alive Sister: Alive a nd well Social History Tobacco Use Types Packs/Day Years Used Date Smoking Tobacco: Never Assessed Sex and Gender Information Value Date Recorded Sex Assigned at Not on file Legal Sex Male 4:12 PM EDT Gender Identity Not on file Sexual Orientation Not on file Plan of Treatment Health Maintenance Due Date Last Done Comments DTaP,Tdap,and Td Vaccines (6 - Tdap) 01/23/2000 01/22/2000, 11/14/1992, 07/13/1989, Additional history exists Varicella Vaccines (1 of 2 - 13+ 2-dose series) 11/15/2000 Consider Men B Vaccine (1 of 2 - Bexsero 2-dose series) 2003 Influenza Vaccines (#1) 2024 COVID-19 Vaccine ( season) 2024 HIB Vaccines Completed 07/13/1989 IPV Vaccines Completed 11/14/1992, 06/15, 03/18/1988, Additional history exists MMR Vaccines Completed 12/11/1999, 03/11/1989 Hepatitis B Vaccines Completed 04/25/2001, 01/22/2000, 12/11/1999 Meningococcal Vaccine Completed 01/14/2006 Pneumococcal Vaccine Aged Out 01/14/2006 No long er eligible based on patient's age to complete this topic HPV Vaccines Aged Out No longer eligi ble based on patient's age to complete this topic Hepatitis A Vaccines Aged Out No long er eligible based on patient's age to complete this topic Men B Vaccine Aged Out No longer elig ible based on patient's age to complete this topic Care Teams Theatrical Rigger Relationship Specialty Start Date End Date Ayaz Bustos MD PCP - General 04/23/17
== END 2024-11-09 23:28 | disposition left against medical advice (07) ==
LOC: HO.ED 23:23
PROVIDERS: Emergency Provider Emergency Medicine
DX: M25.571 Pain in right ankle and joints of right foot (principal); Z53.21 Procedure and treatment not carried out due to patient leaving prior to being seen by health care provider
CPT/HCPCS: 73610; 99281

== ENCOUNTER → 2024-11-09 21:18 | Outpatient (BNV) | payer OTHER, SELFPAY | PROVIDERS: Visit Provider Radiology Diagnostic Radiology | DX: M25.571 Pain in right ankle and joints of right foot (principal) | CPT/HCPCS: 73610 ==

== ENCOUNTER 2025-04-20 16:09 | Emergency (ER) | payer OTHER, SELFPAY ==
[2025-04-20 16:42] VITALS: BP 149/101; PULSE 92; RESP 18; TEMP 37; O2SAT 97; BMI 38.2
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
--- OUTSIDE RECORDS SUMMARY | 2025-04-20 21:03 | XMS_ITS | Encounter Summary ---
Author Organization [facility] Address [address] [place] [phone] Phone Care Team Providers Care Suspect Artist Supervisor Name Role Phone Ayaz Bustos MD Primary Care Provider Unavailabl e Encounter Details Date Type Department Care Team (Late st Contact Info) Description 04/29/2017 Conversion Encounter [facility] - [address] [id number] Social History Tobacco Use Types Packs/Day Years Used Date Smoking Tobacco: Never Assessed Sex and Gender Information Value Date Recorded Sex Assigned at Not on file Legal Sex Male 4:12 PM EDT Gender Identity Not on file Sexual Orientation Not on file documented as of this encounter Plan of Treatment Not on file documented as of this encounter Visit Diagnoses Not on filedocumented in this encounter Care Teams Suspect Artist Supervisor Relationship Specialty Start Date End Date Ayaz Bustos MD PCP - General 04/23/17 documented as of this encounter
== END 2025-04-20 21:05 | disposition left against medical advice (07) ==
LOC: HO.ED 21:01
PROVIDERS: Emergency Provider Emergency Medicine
DX: S49.92XA Unspecified injury of left shoulder and upper arm, initial encounter (principal); V43.62XA Car passenger injured in collision with other type car in traffic accident, initial encounter; Y93.9 Activity, unspecified; Y92.9 Unspecified place or not applicable; Y99.9 Unspecified external cause status
CPT/HCPCS: 99281